=== PATIENT | male | born 1955 | race Caucasian/White ===

== ENCOUNTER 2022-04-30 15:05 | Emergency (ER) | payer MEDICARE ==
[~2022-04-30] VITALS: Ht 175.2 cm; Wt 112.5 kg
== END 2022-04-30 17:54 | disposition home or self-care (01) ==
LOC: EDSEX 15:05 → ED 15:05
DX: A04.72 Enterocolitis due to Clostridium difficile, not specified as recurrent (principal); J44.9 Chronic obstructive pulmonary disease, unspecified; E11.9 Type 2 diabetes mellitus without complications

== ENCOUNTER → 2022-07-15 | Emergency (ER) | payer MEDICARE ==
[~2022-07-15] MED LIST: ACIDOPHILUS1 EAC4 PO; ALLOPURINOL300 MG PO; FIRVANQ25 MG/1 ML PO; HUMALOG100 UNIT/1 SQ; Ipratropium Brom3 ML INH; K-TAB20 MEQ PO; LANTUS SOL100 UNIT/1 SC; LASIX20 MG PO; LIPITOR20 MG PO; MELATONIN1 M3 SL; PACERONE100 MG PO; SLOW I PO; TOPROL XL25 MG PO
== END ==
LOC: ED 21:16
DX: R06.02 Shortness of breath (principal); Z53.21 Procedure and treatment not carried out due to patient leaving prior to being seen by health care provider